=== PATIENT | female | born 1975 | race Caucasian/White ===

== ENCOUNTER 2022-02-09 16:55 | Outpatient (CLI) | payer OTHER, SELFPAY ==
[2022-02-09 20:06] LABS: Vitamin D 25 Hydroxy* 64 ng/mL (30-80)
== END 2022-02-09 16:56 | disposition home or self-care (01) ==
PROVIDERS: PCP Family Medicine; Visit Provider Registered Nurse
DX: Z01.419 Encounter for gynecological examination (general) (routine) without abnormal findings (principal); R53.83 Other fatigue; Z12.4 Encounter for screening for malignant neoplasm of cervix; E04.1 Nontoxic single thyroid nodule
CPT/HCPCS: 82306; 84443; 87624; 88175

== ENCOUNTER 2022-04-16 13:21 | Outpatient (CLI) | payer OTHER, SELFPAY ==
--- NOTE | 2022-04-16 13:20 | CRLHL7_ITS ---
For Patients: As a result of the Cures Act, medical imaging exams and procedure reports are released immediately into your electronic medical record. You may view this report before your referring provider. If you have questions, please contact your health care provider. BILATERAL SCREENING MAMMOGRAM WITH COMPUTER-AIDED DETECTION AND TOMOSYNTHESIS TECHNIQUE: CC and MLO views were obtained. These mammographic images have been obtained using full-field digital technique. These mammographic images were interpreted with the benefit of computer-aided detection. Breast Tomosynthesis was used in this interpretation. COMPARISON FILM: 02/10/18. FINDINGS: The breasts are heterogeneously dense, which may obscure small masses IMPRESSION: There is no radiographic evidence for malignancy. ASSESSMENT: BI-RADS Category 1: Negative RECOMMENDATION: Routine screening mammogram in 1 year. A lay language report of this examination will be provided to the patient. Som Cruz M.D. Diagnostic Radiologist [email or web address] ANIL/mark / be/Dictated by: Som Cruz MD @ 04/19/2022 9:31:00 AM (Electronically Signed)
--- NOTE | 2022-04-16 14:00 | CRLHL7_ITS ---
For Patients: As a result of the Cures Act, medical imaging exams and procedure reports are released immediately into your electronic medical record. You may view this report before your referring provider. If you have questions, please contact your health care provider. INDICATION: NON TOXIC SINGLE THYROID NODULE COMPARISON: 02/10/2018 TECHNIQUE: Kemp scale and color Doppler images were acquired of the thyroid gland. FINDINGS: The thyroid gland demonstrates normal uniform echogenicity and has a smooth outer contour. The right lobe measures 4.7 x 1.1 x 1.5 cm and the left lobe measures 3.7 x 1.1 x 1.6 cm in size. The isthmus measures 2 millimeters. Solid and cystic nodule within midportion of the right thyroid lobe measures 8 x 5 x 7 millimeters, previously measuring 5 x 4 x 4 millimeters. Solid and cystic nodule upper pole left thyroid lobe measures 13 x 6 x 8 millimeters, previously measuring 8 x 5 x 6 millimeters. The color Doppler images demonstrate normal vascularity. Small lymph nodes located within the left side of the neck just above the thyroid measuring 6 x 5 x 6 millimeters and 5 x 3 x 4 millimeters. IMPRESSION: Interval increased size of nodule within the upper pole of the left thyroid lobe now measuring 1.3 cm. FNA should be considered. Dictated by Som Cruz MD @ 04/16/2022 4:01:45 PM (Electronically Signed)
== END 2022-04-16 13:22 | disposition home or self-care (01) ==
LOC: MAMMO 13:21
PROVIDERS: PCP Family Medicine; Visit Provider Registered Nurse
DX: Z12.31 Encounter for screening mammogram for malignant neoplasm of breast (principal); R92.2 Inconclusive mammogram; E04.1 Nontoxic single thyroid nodule
CPT/HCPCS: 76536; 77063; 77067

== ENCOUNTER 2022-07-05 10:06 | Outpatient (CLI) | payer OTHER, SELFPAY ==
--- NOTE | 2022-07-05 10:15 | CRLHL7_ITS ---
For Patients: As a result of the Century Cures Act, medical imaging exams and procedure reports are released immediately into your electronic medical record. You may view this report before your referring provider. If you have questions, please contact your health care provider. INDICATION : Left thyroid nodule. TECHNIQUE : Ultrasound-guided fine needle aspiration of thyroid nodule. Comparison : 04/16/2022 FINDINGS : PROCEDURE: After the informed consent and time-out, multiple fine needle aspirations were obtained from the thyroid nodule. Fine needle performed. 25 gauge needles were used. Lidocaine was used for local anesthesia. The preliminary cytology was adequate for interpretation. Real-time imaging was used for guidance and needle placement. Post imaging ultrasound demonstrates no immediate complication. IMPRESSION : Successful fine needle aspiration of left thyroid nodule. Dictated by Som Cruz MD @ 07/05/2022 11:58:30 AM (Electronically Signed)
== END 2022-07-05 10:07 | disposition home or self-care (01) ==
LOC: US 10:07
PROVIDERS: PCP Family Medicine; Visit Provider Family Medicine
DX: E04.1 Nontoxic single thyroid nodule (principal)
CPT/HCPCS: 10005; 88173

== ENCOUNTER 2023-07-08 14:51 | Outpatient (CLI) | payer OTHER, SELFPAY ==
--- NOTE | 2023-07-08 15:00 | CRLHL7_ITS ---
For Patients: As a result of the Century Cures Act, medical imaging exams and procedure reports are released immediately into your electronic medical record. You may view this report before your referring provider. If you have questions, please contact your health care provider. INDICATION: Thyroid nodules. TECHNIQUE: Conventional two-dimensional campoverde-scale ultrasound of the thyroid gland. COMPARISON: 04/08/2022 FINDINGS: In the mid to inferior right thyroid lobe is a 6 mm TR2 nodule at in the upper left lobe is a 9 mm TR3 nodule. No other nodule is evident. The thyroid parenchyma is otherwise unremarkable. The right lobe measures 4.6 x 1.1 x 1.6 cm and the left lobe 4.4 x 1.1 x 1.8 cm. The isthmus measures 2 mm in thickness. IMPRESSION: Stable benign subcentimeter thyroid nodules, as above. ACR TI-RADS: TR1: Benign No FNA TR2: Not Suspicious No FNA TR3: Mildly Suspicious FNA if greater than or equal to 2.5 cm Follow if greater than or equal to 1.5 cm and less than 2.5 cm TR4: Moderately Suspicious FNA if greater than or equal to 1.5 cm Follow if greater than or equal to 1 cm and less than 1.5 cm TR5: Highly Suspicious FNA if greater than or equal to 1 cm Follow if greater than or equal to 0.5 cm and less than 1.0 cm Dictated by Steffen Lancaster MD @ 07/11/2023 8:46:06 AM (Electronically Signed)
== END 2023-07-08 14:52 | disposition home or self-care (01) ==
PROVIDERS: PCP Family Medicine; Visit Provider Surgery
DX: E04.1 Nontoxic single thyroid nodule (principal)
CPT/HCPCS: 76536

== ENCOUNTER 2025-01-03 08:07 | Outpatient (CLI) | payer OTHER, SELFPAY | END 2025-01-03 08:08 | disposition home or self-care (01) | PROVIDERS: PCP Family Medicine; Visit Provider Physician Assistant | DX: N95.1 Menopausal and female climacteric states (principal); E04.1 Nontoxic single thyroid nodule; R23.2 Flushing | CPT/HCPCS: 80061; 83001; 84443 ==

== ENCOUNTER 2025-03-20 15:18 | Outpatient (CLI) | payer OTHER, SELFPAY ==
--- NOTE | 2025-03-20 15:20 | CRLHL7_ITS ---
For Patients: As a result of the Century Cures Act, medical imaging exams and procedure reports are released immediately into your electronic medical record. You may view this report before your referring provider. If you have questions, please contact your health care provider. INDICATION: BILATERAL SCREENING MAMMOGRAM, ASYMPTOMATIC 50 Y/O FEMALE COMPARISON: 04/16/2022, 02/17/2018, 02/10/2018 TECHNIQUE: Digital mammogram in CC and MLO projections including computer-aided detection (CAD) and tomosynthesis. BREAST COMPOSITION: The breasts are heterogeneously dense, which may obscure small masses. FINDINGS: No suspicious findings. ASSESSMENT: BI-RADS 1 Negative RECOMMENDATION: Annual screening mammogram. A lay language report of this examination will be provided to the patient. Dictated by: Som Cruz MD @ 03/21/2025 09:14:09 (Electronically Signed)
== END 2025-03-20 15:19 | disposition home or self-care (01) ==
LOC: MAMMO 15:19
PROVIDERS: PCP Family Medicine; Visit Provider Family Medicine
DX: Z12.31 Encounter for screening mammogram for malignant neoplasm of breast (principal); R92.333 Mammographic heterogeneous density, bilateral breasts
CPT/HCPCS: 77063; 77067